=== PATIENT | female | born 1955 | race Caucasian/White ===

== ENCOUNTER 2024-07-21 15:33 | Outpatient (CLI) | payer MEDICARE | END 2024-07-21 23:59 | disposition critical access hospital (66) | LOC: EMS 15:33 | DX: R55 Syncope and collapse (principal) | CPT/HCPCS: A0425; A0427 ==

== ENCOUNTER 2024-07-21 16:08 | Emergency (ER) | payer MEDICARE, OTHER ==
[2024-07-21 16:28] VITALS: O2SAT 98
--- NOTE | 2024-07-21 16:40 | ED Physician Documentation ---
PD HPI SYNCOPE - Stated complaint Stated Complaint: NEAR SYNCOPE - Chief complaint Chief Complaint: Neuro - History obtained from History obtained from: Patient - Additional information Additional information: 68-year-old woman with history of localized breast cancer but generally very healthy but has had hypoglycemia in the past. She was waiting for lunch for a long time in a hot sandwich shop and started to feel weak and dizzy and nearly passed out. There was no associated chest pain or trouble breathing. She feels better now after drinking small extremes. Newly other thing of note is she just got back from a long car trip to [place]. Prehospital blood sugar was in the 150s but she states that was after drinking quite a bit of orange juice before EMS arrived. PD PAST MEDICAL HISTORY - Past Medical History Past Medical History: Yes - Allergies Allergies/Adverse Reactions: Allergies Allergy/AdvReac Type Severity Reaction Status Date / Time No Known Drug Allergies Allergy Verified 07/21/24 16:19 - Social History Does the pt smoke?: No Smoking Status: Never smoker Does the pt drink ETOH?: No Does the pt have substance abuse?: No PD ED PE NORMAL - Vitals Vital signs reviewed: Yes - General General: Alert and oriented X 3, No acute distress - HEENT HEENT: PERRL, EOMI - Neck Neck: Supple, no meningeal sign, No bony TTP - Cardiac Cardiac: RRR, No murmur - Respiratory Respiratory: No respiratory distress, Clear bilaterally - Abdomen Abdomen: Non tender - Back Back: No CVA TTP, No spinal TTP - Derm Derm: Normal color, Warm and dry - Extremities Extremities: No edema, No calf tenderness / cord - Neuro Neuro: Alert and oriented X 3, medical technologist clinical 2-12 intact, No motor deficit, No sensory deficit, Normal speech Eye Opening: Spontaneous Motor: Obeys Commands Verbal: Oriented GCS Score: 15 - Psych Psych: Normal mood, Normal affect Results - Vitals Vitals: Vital Signs - 24 hr 07/21/24 07/21/24 16:19 16:52 Temperature 36.6 C Heart Rate 83 74 Respiratory 17 16 Rate Blood Pressure 107/65 108/66 O2 Saturation 98 98 Oxygen O2 Source Room air - EKG (time done) 1649 EKG releavant findings:: EKG personally interpreted by author of this note. Relevant findings are: Rate: Rate (enter#) (70) Rhythm: NSR [place]: Normal Intervals: Normal NM QRS: Normal Ischemia: Normal ST segments, Non specific changes Computer interpretation: Agree with computer - Labs Labs: Laboratory Tests 07/21/24 07/21/24 07/21/24 16:46 16:46 16:46 WBC 5.9 RBC 4.03 L Hgb 12.3 Hct 37.5 MCV 93.1 MCH 30.5 MCHC 32.8 RDW 13.1 Plt Count 237 MPV 9.4 Neut # (Auto) 3.9 Lymph # (Auto) 1.2 L [place] # (Auto) 0.6 Eos # (Auto) 0.1 Baso # (Auto) 0.0 Absolute Nucleated RBC 0.00 Nucleated RBC % 0.0 D-Dimer < 200.0 L Sodium 136 Potassium 3.8 Chloride 105 Carbon Dioxide 26 Anion Gap 5.0 L BUN 17 Creatinine 0.8 Estimated GFR (MDRD) 71 L Glucose 140 H Calcium 8.7 Total Bilirubin 0.3 AST 11 ALT 8 L Alkaline Phosphatase 41 L Total Protein 5.4 L Albumin 3.7 Globulin 1.7 L Albumin/Globulin Ratio 2.2 PD Medical Decision Making - ED course ED course: Sounds like just heat syncope or potentially transient hypoglycemia/resolved. Car trip is significant historically for potentially PE and will add on a D- dimer but she really has no other symptoms referable to that other than presyn cope. Workup demonstrates an unremarkable CBC, negative D-dimer, and fairly normal chemistry panel save mild hyperglycemia. Departure - Departure Disposition: 01 Home, Self Care Clinical Impression: Near syncope Condition: Good Record reviewed to determine appropriate education?: Yes Instructions: ED Near Syncope Unkn Comments: Your EKG and lab results were without significant diagnostic findings today including a D-dimer which ruled out blood clots. This was done because of your recent trip by car. Recommend you rest today and drink plenty of fluids and stay out of the heat. Call your doctor to arrange a follow-up appointment, make the next available appointment. In the interim, return anytime if worse or if new symptoms develop. Forms: PCP List
[2024-07-21] MEDS: SODIUM CHLORIDE 0.9% 1,000 ML IV STA (16:46)
[2024-07-21 16:51] LABS: BASOPHILS % (AUTO) 0.7 %; EOSINOPHILS # (AUTO) 0.1 10^3/uL (0.0-0.7); EOSINOPHILS % (AUTO) 1.7 %; HCT - HEMATOCRIT 37.5 % (37.0-47.0); HGB - HEMOGLOBIN 12.3 g/dL (12.0-16.0); LYMPHOCYTES # (AUTO) 1.2 10^3/uL (1.5-3.5); LYMPHOCYTES % (AUTO) 20.1 %; MEAN CORPUSCULAR HEMOGLOBIN 30.5 pg (27.0-31.0); MEAN CORPUSCULAR HGB CONC 32.8 g/dL (32.0-36.0); MEAN CORPUSCULAR VOLUME 93.1 fL (81.0-99.0); MEAN PLATELET VOLUME 9.4 fL (7.9-10.8); MONOCYTES # (AUTO) 0.6 10^3/uL (0.0-1.0); MONOCYTES % (AUTO) 10.4 %; NEUTROPHILS # (AUTO) 3.9 10^3/uL (1.5-6.6); NEUTROPHILS % (AUTO) 66.8 %; PLT - PLATELET COUNT 237 10^3/uL (130-450); RED BLOOD COUNT 4.03 10^6/uL (4.20-5.40); RED CELL DISTRIBUTION WIDTH 13.1 % (12.0-15.0); WHITE BLOOD COUNT 5.9 x10^3/uL (4.8-10.8)
[2024-07-21 17:04] LABS: ALBUMIN 3.7 g/dL (3.2-5.5); ALBUMIN/GLOBULIN RATIO 2.2 (1.0-2.2); BILIRUBIN,TOTAL 0.3 mg/dL (0.2-1.0); CALCIUM 8.7 mg/dL (8.5-10.3); CREATININE 0.8 mg/dL (0.6-1.3); POTASSIUM 3.8 mmol/L (3.5-4.5); TOTAL PROTEIN 5.4 g/dL (6.4-8.9)
[2024-07-21 18:01] VITALS: BP 116/66
== END 2024-07-21 17:55 | disposition home or self-care (01) ==
LOC: ED 16:08
DX: R55 Syncope and collapse (principal)
CPT/HCPCS: 36415; 80053; 85025; 85379; 93005; 96360; 99283